=== PATIENT | female | born 1935 | race Caucasian/White ===

== ENCOUNTER 2022-04-01 06:28 | Day surgery (SDC) | payer OTHER ==
--- NOTE | 2022-03-31 15:55 | RAD REPORT ---
EXAM DESCRIPTION: RAD - Chest Pa And Lat (2 Views) - 03/31/2022 3:48 pm CLINICAL HISTORY: pre op for surgery Chest pain. COMPARISON: Chest Pa And Lat (2 Views) dated 06/10/2015 FINDINGS: The lungs are clear. The heart is normal in size. No displaced fractures. Right shoulder a rthroplasty. IMPRESSION: No acute or concerning finding suspected.
[2022-03-31 16:07] LABS: Hematocrit 42.2 % (36.0-45.0); Lymphocytes % 44.8 % (15.3-44.8); MCV 91.6 fL (80-100); MPV 10.4 fL (7.6-11.3); RBC Red Blood Cell Count 4.61 M/uL (3.86-4.86)
[2022-03-31 16:25] LABS: Potassium 4.1 mmol/L (3.5-5.1)
[2022-04-01] MEDS ORDERED: Ringers Lactate 1,000 ML IV ONE (07:15)
[2022-04-01] MEDS ORDERED: BUPIVACAINE 0.5% PF 10 ML VIAL ONE (07:36)
[2022-04-01] MEDS ORDERED: LIDOCAINE 2% MPF 5 ML VIAL ONE (08:12)
[2022-04-01] MEDS ORDERED: propofoL 200 MG/20 ML VIAL IV ONE ×2 (08:12→08:49)
[2022-04-01] MEDS ORDERED: CIPROFLOXACIN 400mg IV 400 MG/200 ML BAG IV ONE (08:15)
[2022-04-01] MEDS ORDERED: BACITRACIN OINTMENT 14 GM TUBE TOP ONE (09:15)
--- NOTE | 2022-04-01 09:39 | P.BOP ---
Preoperative diagnosis: facial ulcerated mass Postoperative diagnosis: same Primary procedure: Wide excision of facial ulcerated mass Estimated blood loss: <10cc Specimen: mass Anesthesia: Local Complications: None Transferred to: Recovery Room Condition: Good
[2022-04-01 12:53] VITALS: BP 140/69; TEMP 97.2; O2SAT 97
== END 2022-04-01 10:17 | disposition home or self-care (01) ==
LOC: OR 06:28
PROVIDERS: ATTEND Surgery
PROC: 0HB1XZZ Excision of Face Skin, External Approach (ICD-10-PCS; principal; 2022-04-01 08:15)
DX: C44.329 Squamous cell carcinoma of skin of other parts of face (principal); I10 Essential (primary) hypertension; E78.00 Pure hypercholesterolemia, unspecified; Z85.42 Personal history of malignant neoplasm of other parts of uterus; Z88.0 Allergy status to penicillin; Z88.8 Allergy status to other drugs, medicaments and biological substances
CPT/HCPCS: 93005; 85025; 80048; 36415; 88305; 71046; 11644; J2704 ×2; J2001; J7120; J0744

== ENCOUNTER 2022-05-01 08:39 | Day surgery (SDC) | payer OTHER ==
[2022-05-01] MEDS ORDERED: Ringers Lactate 1,000 ML IV ONE (08:49)
[2022-05-01] MEDS ORDERED: LIDOCAINE 2% MPF 5 ML VIAL ONE (10:43)
[2022-05-01] MEDS ORDERED: propofoL 200 MG/20 ML VIAL IV ONE ×2 (10:43→12:06)
[2022-05-01] MEDS ORDERED: BACITRACIN OINTMENT 14 GM TUBE TOP ONE (11:25)
[2022-05-01] MEDS ORDERED: LIDOCAINE 1% W/EPI 1:100,000 10 ML VIAL ONE (11:25)
--- NOTE | 2022-05-01 13:10 | P.OP ---
Dissolver Operator: NONE,NONE Preoperative diagnosis: BCC nose. Skin lesion NUB left adventist Postoperative diagnosis: BCC nose. SK vs SCC in situ, no invasive SCC Primary procedure: Excision nose, 15mm Secondary procedure: shave biopsy L adventist Anesthesia: local, MAC sedation Estimated blood loss: 5ml Specimen: Nose, Frozen. L adventist, Frozen Findings: Nose negative margins, L adventist SK vs SCC in situ Operative Technique: After application of sedation and local anesthesia, the face and neck was prepped and draped in a standard sterile fashion. Care was taken to avoid covering the face with the drapes to prevent buildup of oxygen due to high fire risk. The previous biopsy site was identified and the gross tumor was noted at the supratip portion of the nose. A margin of 2 to 3 mm around the greatest tumor was designed and incised using a 15 C blade. 2 small areas of bleeding from vessels were clamped with mosquito's. The specimen was sharply elevated from the underlying tissues. A suture was placed at the superiormost portion indicating 12:00 for orientation and the specimen was sent to pathology for frozen section analysis. The clamped vessels were ligated with silk suture and the surgical bed was cauterized to obtain hemostasis following cessation of oxygen and evacuation of the immediate field using suction. Attention was then turned to the left lateral orbit/temporal region where there is an irregular, elevated, and irritated skin lesion. A shave biopsy was performed with a fresh 15 blade scalpel and the specimen was sent to pathology for frozen section analysis. The wound was treated with electrocautery to obtain hemostasis. 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 The left temporal lesion appeared to be an irritated support keratosis with possible areas of squamous cell carcinoma in situ but no evidence of an invasive component. On discussion with the patient we elected to defer closure or skin grafting of the nose in order to limit the duration, complexity, and risk of the surgery given her severe underlying medical comorbidities. She was morally opposed to grafting of the TheraSkin. Therefore the wound was treated with a small amount of additional cauterization then the skin was cleaned and the nasal wound which was 15 x 15 mm was dressed with antibiotic ointment and a Band-Aid. The left adventist was dressed in a similar fashion with antibiotic ointment and a Band-Aid. Complications: None Implants: none Transferred to: Recovery Room Condition: Good
[2022-05-01 13:45] VITALS: BP 123/58; TEMP 97.6; O2SAT 97
== END 2022-05-01 13:30 | disposition home or self-care (01) ==
LOC: OR 08:39
PROVIDERS: ATTEND Otolaryngology
PROC: 0HB1XZX Excision of Face Skin, External Approach, Diagnostic (ICD-10-PCS; 2022-05-01)
PROC: 0HB1XZZ Excision of Face Skin, External Approach (ICD-10-PCS; principal; 2022-05-01 10:30)
DX: C44.311 Basal cell carcinoma of skin of nose (principal); D04.39 Carcinoma in situ of skin of other parts of face; L57.0 Actinic keratosis
CPT/HCPCS: 88331; 88332; 88305; 11642; 11102; J2704 ×2; J2001; J7120

== ENCOUNTER 2024-01-02 13:20 | Emergency (ER) | payer OTHER ==
--- OUTSIDE RECORDS SUMMARY | 2024-01-02 13:23 | XMS REPORT | Clinical Summary ---
Author Name Unknown Organization [facility] Address [address] [place] [address] Care Team Providers Care Chief Compressor Station Engineer Name Role Phone Roseann Albarran MD Unavailable [phone] Margy Grewal MD Unavailable [phone] Juma Heaton MD Primary Care Provider [phone] Celina Stevenson PA-C Unavailable [phone] Sendy Ashby MD Unavailable [phone] Allergies Active Allergy Reactions Criticality Noted Date Comments Pregabalin 09/26/2015 numbness Morphine Itching 09/11/2015 Other Swelling High 08/08/2015 Reaction to IV Contrast causing swelling/itching/hives Penicillins Swelling Low 07/23/2015 Rash Oxycodone-Acetaminophen Rash Low 07/23/2015 Patient tolerates hydrocodone/acetaminoph en ([place]). Tramadol GI Intolerance 09/11/2015 Medications Medication Sig Dispensed Refills Start Date End Date Status ALBUTEROL SULFATE INHALATION Inhale by mouth as needed. Active montelukast (SINGULAIR) 10 mg tablet Take 10 mg by mouth daily. Active budesonide-formoterol (SYMBICORT) 160-4.5 mcg/actuation inhaler Inhale 2 puffs by mouth twice daily. Active ranitidine (ZANTAC) 150 MG capsule Take 150 mg by mouth as needed. Active tiotropium (SPIRIVA WITH HANDIHALER) 18 mcg inhalation capsule Inhale 18 mcg by mouth at bedtime. Insert 1 capsule in handi-haler and inhale orally once daily. Active benzonatate (TESSALON) 100 mg capsule Take 200 mg by mouth daily as needed. Active cholecalciferol, vitamin D3, (VITAMIN D3) 5,000 units tab tablet Take 5,000 Units by mouth daily. Active lisinopril (PRINIVIL,ZESTRIL) 20 mg tabletIndications:Hyp ertension Take 1 tablet (20 mg total) by mouth daily. For blood pressure. 30 tablet 10/18/2015 Active levothyroxine (SYNTHROID, LEVOTHROID) 112 mcg tablet Take 112 mcg by mouth daily. Active Active Problems Problem Noted Date Diagnosed Date Hyponatremia 10/16/2015 Fatigue 10/16/2015 Weakness 10/16/2015 Hypomagnesemia 09/05/2015 Postoperative retention of urine 08/10/2015 BMI 45 to 49.9 07/26/2015 Mild chronic obstructive pulmonary disease 07/25 Overview: Under control on meds x 1 year, no hospitilazations Last Assessment & Plan: Forgets to use the symbicort on a regular basis, but does use the spiriva and albuterol, Reminded to use as directed Spinal stenosis of lumbar region 07/26/2015 Overview: Dx'd 1990s, uses a walker to get around, but limited ROM due to back pain. 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 Hypertension 07/23/2015 Hypothyroidism 07/23/2015 Irritable bowel syndrome 07/23/2015 Gastro-esophageal reflux disease with esophagiti s 07/23/2015 Surgical History Surgery Date Site/Laterality Comments KNEE SURGERY 03/01/2012 - 02/28/2013 Right total knee repair SHOULDER SURGERY 03/01/2012 - 02/28/2013 Right HYSTEROSCOPY DILATION AND CURETTAGE OF UTERUS DENTAL SURGERY APPENDECTOMY age 15 LAPAROSCOPIC CHOLECYSTECOMY more than 10 years ago JOINT REPLACEMENT Right right knee replacement JOINT REPLACEMENT Right right shoulder replacement RI LAPS TOTAL HYSTERECT 250 GM/< W/RMVL TUBE/OVARY 08/09/2015 Abdomen/Bilateral Procedure: LAPAROSCOPY, SURGICAL, WITH TOTAL HYSTERECTOMY, WITH OR WITHOUT REMOVAL OF TUBE(S) AND/OR OVARY(S); Surgeon: Yordan Gonzalez MD; Location: MAIN OR; Service: ECDIS N NAVIGATION OPERATOR - GYNECOLOGIC ONCOLOGY Medical devices from this surgery are in the Medical Devices section. RI LMTD LMPHADEC STAGING SPX RPR AORTIC&/SPLENIC 08/09/2015 Abdomen/Bilateral Procedure: LYMPHADENECTOMY FOR STAGING; RETROPERITONEAL (AORTIC AND/OR SPLENIC); Surgeon: Yodran Gonzalez MD; Location: MAIN OR; Service: ECDIS N NAVIGATION OPERATOR - GYNECOLOGIC ONCOLOGY Medical devices from this surgery are in the Medical Devices section. RI INSJ TUNNELED CTR VAD W/SUBQ PORT AGE 7 YR/> 2015 Neck/Right Procedure: INSERTION OF TUNNELED CENTRALLY INSERTED CENTRAL VENOUS CATHETER WITH SUBCUTANEOUS PORT; Surgeon: Mikey Ling MD; Location: [facility]; Service: SURG ONC - PORT Medical devices from this surgery are in the Medical Devices section. RI US VASC ACCESS SITS VSL PATENCY NDL ENTRY 2015 Right Procedure: US GUIDANCE WITH EVAL OF POTENTIAL ACCESS SITES, REALTIME US VISUALIZATION OF VASC NEEDLE ENTRY; Surgeon: Mikey Ling MD; Location: [facility]; Service: SURG ONC - PORT Medical devices from this surgery are in the Medical Devices section. RI FLUORO CENTRAL VENOUS ACCESS DEV PLACEMENT 2015 Neck/N/A Procedure: FLUORO GUIDANCE FOR CENTRAL VENOUS ACCESS DEVICE PLACEMENT, REPLACEMENT, OR REMOVAL; Surgeon: Mikey Ling MD; Location: [facility]; Service: SURG ONC - PORT Medical devices from this surgery are in the Medical Devices section. Medical History Medical History Date Comments Malignant neoplasm of uterus Gastroesophageal reflux disease Disorder of thyroid gland Hypertension Arthritis Chronic obstructive pulmonary disease Irritable bowel syndrome Asthma Spinal stenosis of lumbar region 07/26/2015 Dx'd 1990s, uses a walker to get around, but limited ROM due to back pain. Chronic kidney disease, stage 3 (moderate) 2015 Primary generalized osteoarthritis 07/26/2015 Toes, ankles, back, knees, etc Family History Medical History Relation Name Comments Heart disease Brother Diabetes Daughter Hypothyroidism Daughter Stroke Father Diabetes Mother Heart disease Mother Hypothyroidism Mother Relation Name Status Comments Brother Daughter Father Mother Social History Tobacco Use Types Packs/Day Years Used Date Smoking Tobacco: Former Cigarettes 0.5 25 1 960 - 1984 Smokeless Tobacco: Never Tobacco Cessation:Counseling Given: No Alcohol Use Standard Drinks/Week Comments No 0 (1 standard drink = 0.6 oz pur e alcohol) Sex and Gender Information Value Date Recorded Sex Assigned at Female 03/11/2022 5:16 PM FLOATING DERRICK OPERATOR Gender Identity Female 03/11/2022 5:16 PM FLOATING DERRICK OPERATOR Sexual Orientation Straight 03/11/2022 5: 16 PM FLOATING DERRICK OPERATOR Job Start Date Occupation Industry Not on file Not on file Not on file Obstetrics History Para Term AB IAB SAB Ectopic Multiple Livin g Live Births 2 2 2 Date Outcome GA Total Labor Labor/2nd/3rd Weight Sex Type Anes PTL Cee A1 A5 Name Clin Term Term Plan of Treatment Health Maintenance Due Date Last Done Comments Pneumococcal Vaccine: 65+ Years (1 of - PCV) 003 COVID-19 Vaccine ( season) 2023 Influenza Vaccine (#1) 2023 11/29/2013 Medical Devices Implanted Type Area Full Time Paramedic Device Identifier Shelf Expiration Date Model / Serial / Lot Power Port Cath Tray 8fr Toi Mri - [id number] Implanted:Qty : 1 on 2015 by Mikey Ling MD at [facility] Implant Right: Neck BARD ACCESS SYSTEMS 11/26/2016 [id number] / / [id number] Description:NECK/CHESTCATHET ER LENGTH 25CM Tisseel 10ml - [id number] Implanted:Qty : 1 on 08/09/2015 by Yordan Gonzalez MD at [facility] Tissue N/A: Abdomen [employer] Systems 10/29/2016 [id number] / [id number] / [id number] Advance Directives Documents on File Type Date Recorded Patient Aviation Electronic Warfare Operator Expl anation Advance Directives: Medical Power of Corporate Travel Expert 08/12/2015 12:29 PM Medical Power of Corporate Travel Expert * Full Code (Latest Code Status on File) Date Activated Date Inactivated Comments 10/16/2015 6:15 PM 10/18/2015 3:41 PM Care Teams Chief Compressor Station Engineer Relationship Specialty Start Date End Date Roseann Albarran MD [address] [place] [address] [email or web address] PCP - External Follow Up A Obstetrics/Gynecology 07/05/15 Margy Grewal MD [address] [place] [id number] PCP - External Referring Internal Medicine 03/10/22 Juma Heaton MD [address] [place] [id number] [email or web address] PCP - General Head and Neck Surgery 03/18/22 Celina Stevenson PA-C [address] [place] [id number] [email or web address] Physician Morgue Librarian Surgical Oncology 08/29/15 Sendy Ashby MD [address] [place] [id number] [email or web address] Consulting Physician Radiation Oncology 09/11/15
--- NOTE | 2024-01-02 14:35 | EDPHYS ---
Physician Documentation [facility] Name: Rubia Lazo Age: 88 yrs Sex: Female : 1935 Arrival Date: 01/02/2024 Time: 13:20 Bed 2 Private MD: ED Physician Eliz Kwok HPI: 01/01 14:29 This 88 yrs old Female presents to ER via Wheelchair with complaints of Right arm jr8 swelling and psbl insect bite. 14:29 Onset: The symptoms/episode began/occurred acutely, yesterday. Associated signs and jr8 symptoms: The patient has no apparent associated signs or symptoms. The patient has not experienced similar symptoms in the past. The patient has not recently seen a physician. Patient stated that she started to have right hand pain and swelling along with redness yesterday that is continued today. Unknown if it is from the scratch bites from her cat or an insect bite. Stated that the pain is getting worse and has been utilizing [id number] Tylenol without relief.. Historical: - Allergies: 14:03 GABAPENTIN; iw 14:03 Lyrica; iw 14:03 PENICILLINS; iw 14:03 IV contrast; iw - PMHx: 14:03 Hypertensive disorder; Hypothyroidism; CVA; carotid blockage; iw - PSHx: 14:03 Appendectomy; Cholecystectomy; iw 14:04 right shoulder; right knee; iw - Immunization history:: Adult Immunizations up to date. - Infectious Disease History:: Denies. - Social history:: Smoking status: Patient/guardian denies using tobacco, but has a distant history of tobacco abuse. ROS: 14:29 Constitutional: Negative for fever, chills, and weight loss, jr8 14:29 Skin: Positive for erythema, swelling, of the right hand, 14:29 All other systems are negative, Exam: 14:29 Constitutional: This is a well developed, well nourished patient who is awake, alert, jr8 and in no acute distress. Cardiovascular: Regular rate and rhythm with a normal S1 and S2. No gallops, murmurs, or rubs. Normal PMI, no JVD. No pulse deficits. Respiratory: Lungs have equal breath sounds bilaterally, clear to auscultation and percussion. No rales, rhonchi or wheezes noted. No increased work of breathing, no retractions or nasal flaring. Abdomen/GI: Soft, non-tender, with normal bowel sounds. No distension or tympany. No guarding or rebound. No evidence of tenderness throughout. Skin: Warm, dry with normal turgor. Normal color with no rashes, no lesions. Right dorsal hand and wrist cellulitis present, noncircumferential. No lymphangitic spreading. Mild tenderness to palpation and mild warmth present. Neurovascular intact otherwise. MS/ Extremity: Pulses equal, no cyanosis. Neurovascular intact. Full, normal range of motion. Vital Signs: 14:01 BP 152 / 74; Pulse 76; Resp 16; Temp 98(TE); Pulse Ox 97% on R/A; Weight 104.78 kg; iw Height 5 ft. 0 in. ; Pain 10/10; 15:03 BP 143 / 71; Pulse 68; Resp 16; Temp 98.4; Pulse Ox 97% ; me1 14:01 Body Mass Index 45.11 (104.78 kg, 152.4 cm) iw 14:01 Pain Scale: Adult iw MDM: 14:12 Medical Screening Exam initiated jr8 14:29 Differential diagnosis: Abscess, cellulitis, insect bite, allergic dermatitis. Data jr8 reviewed: vital signs, nurses notes, and as a result, I will discharge patient. Test considered but Not performed: Labs: Patient hemodynamically stable and afebrile without any signs of toxicity or sepsis. Local cellulitis present can be started on oral antibiotics without further workup.. Counseling: I had a detailed discussion with the patient and/or guardian regarding the historical points, exam findings, and any diagnostic results supporting the discharge/admit diagnosis, the need for outpatient follow up, a family practitioner, to return to the emergency department if symptoms worsen or persist or if there are any questions or concerns that arise at home. ED course: Discussed with family that she has a local cellulitis. Will start her on oral antibiotics but nontoxic and afebrile at this time. No indication for admission or further workup. If she were to have spreading, worsening, or fevers to come back for reevaluation and possible admission and IV antibiotics at that time. Family and patient understood with plan at this time. Will go home on pain medication as the regular Tylenol has not improved her pain.. Administered Medications: No medications were administered Disposition Summary: 01/02/24 14:34 Discharge Ordered Notes: Location: Home jr8 Problem: new jr8 Symptoms: have improved jr8 Condition: Stable jr8 Diagnosis - Cellulitis of right upper limb jr8 Followup: jr8 - With: Private Physician - When: 5 - 6 days - Reason: Recheck today's complaints, Continuance of care, Re-evaluation by your physician Discharge Instructions: - Discharge Summary Sheet jr8 - Cellulitis, Adult jr8 Forms: - Medication Reconciliation Form jr8 - Antibiotic Education jr8 - Prescription Opioid Use jr8 - Patient Portal Instructions jr8 - Leadership Thank You Letter jr8 Prescriptions: - acetaminophen-codeine 300-30 mg Oral tablet - take 1 tablet ORAL route every 6 hours as needed for pain; 16 tablet; Refills: jr8 0, Product Selection Permitted - Bactrim DS 800-160 mg Oral Tablet - take 1 tablet ORAL route every 12 hours for 10 days; 20 tablet; Refills: 0, jr8 Product Selection Permitted Signatures: Stephy Harding RN RN iw Sincere Lamb PA PA jr8
--- NOTE | 2024-01-02 14:35 | ER ---
Nurse's Notes [facility] Name: Rubia Lazo Age: 88 yrs Sex: Female : 1935 Arrival Date: 01/02/2024 Time: 13:20 Bed 2 Private MD: Diagnosis: Cellulitis of right upper limb Presentation: 01/01 14:01 Chief complaint: Patient states: redness and swelling to right hand since yesterday , iw the redness is spreading up her arm now. Coronavirus screen: At this time, the client does not indicate any symptoms associated with coronavirus-19. Ebola Screen: No symptoms or risks identified at this time. Initial Sepsis Screen: Does the patient meet any 2 criteria? No. Patient's initial sepsis screen is negative. Does the patient have a suspected source of infection? No. Patient's initial sepsis screen is negative. Risk Assessment: Do you want to hurt yourself or someone else? Patient reports no desire to harm self or others. Onset of symptoms was January 01, 2024. 14:01 Method Of Arrival: Wheelchair iw 14:01 Acuity: AMINAH 3 iw Historical: - Allergies: 14:03 GABAPENTIN; iw 14:03 Lyrica; iw 14:03 PENICILLINS; iw 14:03 IV contrast; iw - PMHx: 14:03 Hypertensive disorder; Hypothyroidism; CVA; carotid blockage; iw - PSHx: 14:03 Appendectomy; Cholecystectomy; iw 14:04 right shoulder; right knee; iw - Immunization history:: Adult Immunizations up to date. - Infectious Disease History:: Denies. - Social history:: Smoking status: Patient/guardian denies using tobacco, but has a distant history of tobacco abuse. Screenin:[facility] ED Fall Risk Assessment (Adult) History of falling in the last 3 months, me1 including since admission No falls in past 3 months (0 pts) Confusion or Disorientation No (0 pts) Intoxicated or Sedated No (0 pts) Impaired Gait Yes (1 pt) Mobility Assist Device Used Yes (1 pt) Altered Elimination No (0 pt) Score/Fall Risk Level 3 or more points = High Risk Maintained a safe environment, Used ambulatory aids as needed (educated on \T\ assisted with), Used gait belt as appropriate. Abuse screen: Denies threats or abuse. Nutritional screening: No deficits noted. Tuberculosis screening: No symptoms or risk factors identified. Assessment: 14:26 General: Appears in no apparent distress. well groomed, well developed, well nourished, me1 Behavior is calm, cooperative, appropriate for age, Reports. 14:27 General: Reports redness and swelling to right hand since yesterday , the redness is me1 spreading up her arm now. Pain: Complains of pain in right hand Pain does not radiate. Pain currently is 6 out of 10 on a pain scale. Quality of pain is described as aching, Pain began gradually, 1 day ago. Is continuous. Neuro: Level of Consciousness is awake, alert, obeys commands, Oriented to person, place, time, situation, Appropriate for age. Cardiovascular: Patient's skin is warm and dry. Respiratory: Airway is patent Respiratory effort is even, unlabored, Respiratory pattern is regular, symmetrical. GI: No signs and/or symptoms were reported involving the gastrointestinal system. : No signs and/or symptoms were reported regarding the genitourinary system. EENT: No signs and/or symptoms were reported regarding the EENT system. Derm: Skin is healthy with good turgor, Skin is pink, warm \T\ dry. Wound noted right hand Wound is REDNESS AND SWELLING TO RIGHT HAND WITH REDNESS GOING UP RIGHT ARM. Musculoskeletal: Reports pain in right hand. Vital Signs: 14:01 BP 152 / 74; Pulse 76; Resp 16; Temp 98(TE); Pulse Ox 97% on R/A; Weight 104.78 kg; iw Height 5 ft. 0 in. ; Pain 10/10; 15:03 BP 143 / 71; Pulse 68; Resp 16; Temp 98.4; Pulse Ox 97% ; me1 14:01 Body Mass Index 45.11 (104.78 kg, 152.4 cm) iw 14:01 Pain Scale: Adult iw ED Course: 13:23 Patient arrived in ED. ra3 13:43 Sincere [facility] PA is PHCP. jr8 13:43 Eliz Kwok MD is Attending Physician. jr8 14:03 Triage completed. iw 14:05 Arm band placed on. iw 14:18 Kindra Johns, XAVI is Primary Nurse. me1 14:27 Patient has correct armband on for positive identification. Bed in low position. Call me1 light in reach. Side rails up X2. Provided Education on: POC. Verbalized understanding. . Client placed on continuous cardiac and pulse oximetry monitoring. NIBP monitoring applied. Pulse ox on. NIBP on. 14: No provider procedures requiring assistance completed. Patient did not have IV access me1 during this emergency room visit. Administered Medications: No medications were administered Medication: 14:27 VIS not applicable for this client. me1 Outcome: 14:34 Discharge ordered by MD. maciel 15:03 Discharged to home via wheelchair, with friend, me1 15:03 Condition: stable 15:03 Discharge instructions given to patient, friend, Instructed on discharge instructions, follow up and referral plans. medication usage, Demonstrated understanding of instructions, follow-up care, medications, Prescriptions given X 2, 15:04 Patient left the ED. me1 Signatures: Stephy Harding, RN RN Sincere Lamb PA PA jr8 Kindra Johns RN RN ar1 Maribel Clemente ra3 Corrections: (The following items were deleted from the chart) 14: 14:01 Chief complaint: Patient states: redness and swelling to right hand since me1 yesterday , the redness is spreading up her arm now iw 14:27 14:01 Chief complaint: Patient states: redness and swelling to right hand since me1 yesterday , the redness is spreading up her arm now ar1
[2024-01-02 15:48] VITALS: O2SAT 97
[2024-01-02 15:49] VITALS: BP 143/71; TEMP 98.4
== END 2024-01-02 15:04 | disposition home or self-care (01) ==
LOC: ER 13:20
DX: L03.113 Cellulitis of right upper limb (principal)
CPT/HCPCS: 99283

== ENCOUNTER 2024-02-16 09:04 | Day surgery (SDC) | payer OTHER ==
--- NOTE | 2024-02-16 09:34 | RAD REPORT ---
EXAMINATION: TWO VIEW CHEST XR CLINICAL INDICATION: pre-op pending mass removal face TECHNIQUE: 2 views of the chest was performed. COMPARISON: 03/31/2022 FINDINGS: The lungs are well inflated and clear. The heart is normal in size. No displaced fractures evident. R ight shoulder hardware noted. IMPRESSION: No acute or significant abnormalities.
[2024-02-16] MEDS: Ringers Lactate 1,000 ML IV ONE (09:45)
[2024-02-16 09:46] LABS: Absolute Basophils 0.1 K/uL (0-0.5); Absolute Eosinophils 0.4 K/uL (0-0.5); Absolute Lymphocytes (CBC) 3.2 K/uL (0.7-4.9); Absolute Monocytes 0.7 K/uL (0.1-1.3); Absolute Neutrophil 2.7 K/uL (1.8-8.0); Basophils % 1.3 % (0-1.3); Eosinophils % 5.4 % (0-4.4); Hematocrit 38.2 % (36.0-45.0); Hemoglobin 12.5 g/dL (12.0-15.0); Lymphocytes % 45.4 % (15.3-44.8); MCHC 32.8 g/dL (32.0-36.0); MCV 91.5 fL (80-100); MPV 10.8 fL (7.6-11.3); Neutrophils % 37.9 % (41.7-73.7); Nucleated Red Blood Cells % 0.1 % (0-0); Platelets 215 thou/uL (152-406); RBC Red Blood Cell Count 4.18 M/uL (3.86-4.86); Red Cell Distribution Width 13.5 % (12.1-15.2)
[2024-02-16 09:50] LABS: PT Prothrombin Time 11.3 SECONDS (9.4-12.5); PTT, Activated Partial Thromb 27.5 SECONDS (24.3-36.9); Protime INR 1.01
[2024-02-16 09:58] LABS: Anion Gap 9.1 mEq/L (5.0-15.0); Potassium 4.1 mEq/L (3.5-5.1)
[2024-02-16] MEDS ORDERED: ONDANSETRON 4 MG/2 ML VIAL ONE (10:22)
[2024-02-16] MEDS ORDERED: LIDOCAINE 2% MPF 5 ML VIAL ONE (10:22)
[2024-02-16] MEDS ORDERED: propofoL 200 MG/20 ML VIAL IV ONE (10:22)
[2024-02-16] MEDS ORDERED: FENTANYL CITR 100 MCG/2 ML ONE (10:22)
[2024-02-16] MEDS: CIPROFLOXACIN 400mg IV 400 MG/200 ML BAG IV ONE (11:08)
--- NOTE | 2024-02-16 11:36 | P.BOP ---
Preoperative diagnosis: right facial ulcerated tender mass with bleeding Postoperative diagnosis: squamous cell carcinoma Primary procedure: Wide excision of squamous cell carcinoma 2x2cm with frozen Estimated blood loss: <5cc Specimen: squamous cell carcinoma Findings: squamous cell carcinoma margins free per Dr Bui Anesthesia: General Complications: None Transferred to: Recovery Room Condition: Good
[2024-02-16 13:03] VITALS: BP 156/71; TEMP 98; O2SAT 99
--- NOTE | 2024-02-17 11:28 | EKG ---
Test Date: 2024-02-16 Test Time: 09:44:24 Licensed Journeyman Electrician: WILLIAM MEASUREMENT RESULTS: Intervals: Rate: 70 CA: 136 QRSD: 82 QT: 388 QTc: 419 [place]: P: 49 CA: 136 QRS: -17 T: 52 INTERPRETIVE STATEMENTS: Normal sinus rhythm Nonspecific ST abnormality Abnormal ECG Compared to ECG 03/31/2022 15:12:28 ST (T wave) deviation now present Electronically Signed On 02-17-24 11:27:26 JAVA SCALA DEVELOPER by Saad Krishnamurthy
--- NOTE | 2024-02-21 09:38 | OP ---
Surgeon: Mauricio Sandoval MD Preoperative Diagnosis: Right facial ulcerated, tender mass with bleeding. Postoperative Diagnosis: Squamous cell carcinoma. Procedure: Wide excision of a squamous cell carcinoma with frozen section about 2 x 2 cm. Specimen: Squamous cell carcinoma. Findings: Squamous cell carcinoma with margins free of tumor per Pathology, Dr. Bui. Anesthesia: General plus local. Indication: This is a case of an 88-year-old patient, who comes with a lesion on her face with on an d off bleeding. She wants that excised. Benefits, alternatives, and risks of wide excision fully ex plained, which include, but not limited to, infection, bleeding, damage to adjacent structures, anest hesia complication, recurrence, IA, and . She also understands this may not relieve any symptom s. She might need more than one surgical intervention. She understood and signed a consent. Procedure In Detail: The area of concern was marked by me and the patient in the holding room. The patient was brought to the operating room and placed in supine position. Anesthesia was induced with out complication. A time-out was called. Local anesthesia was applied, followed by a wedge incision , and the skin incision was carried down until we found subcutaneous tissue. Margins were marked for orientation and came back as squamous cell carcinoma with margins free of tumor. The area was close d after obtaining hemostasis and irrigation and injected local anesthetic with a combination of 3-0 c hromic and nylon. Sterile dressing was placed over the area. The patient tolerated the procedure well. The patient was sent to Recovery in stable condition. AUSTIN/PATY Voice ID: [id number] Report ID: [id number]
--- NOTE | 2024-02-21 09:38 | DS ---
Date of Discharge: 02/16/2024 Diagnosis: Right facial ulcerated squamous cell carcinoma. Procedure: Wide excision of a squamous cell carcinoma. Condition: Stable. Disposition: Home. Activity: As tolerated. No heavy lifting. Followup: Follow up in my office in 1 week. Call for appointment [phone]. Keep area dry for 48 ho urs, then may shower. LINNEA Voice ID: [id number] Report ID: [id number]
== END 2024-02-16 12:50 | disposition home or self-care (01) ==
LOC: OR 09:04
PROVIDERS: ATTEND Surgery
PROC: 0JB10ZZ Excision of Face Subcutaneous Tissue and Fascia, Open Approach (ICD-10-PCS; principal; 2024-02-16 10:58)
DX: C44.320 Squamous cell carcinoma of skin of unspecified parts of face (principal)
CPT/HCPCS: 11642; 93005; 85025; 80048; 36415; 85610; 88331; 88332; 88305; 85730; 71046; J2704; J2003; J3010; J2405; J0744; J7120